=== PATIENT | male | born 1975 | race American Indian/Alaskan Native ===

== ENCOUNTER 2017-04-07 18:03 | Emergency (ER) | payer SELFPAY ==
[2017-04-07 18:15] VITALS: BP 117/66; PULSE 79; TEMP 96.1; BMI 21.7
--- NOTE | 2017-04-07 19:01 | PDOC ---
History of Present Illness - General Chief Complaint: Respiratory Stated Complaint: FLU SYMPTOMS Time Seen by Provider: 04/07/17 18:59 History Source: Patient Exam Limitations: No Limitations - History of Present Illness Initial Comments: 04/07/17 19:20 Patient came for evaluation of flulike symptoms. has had high fever since Sunday, body aches, sweats and chills, moist nonproductive cough, mild sore throat pain. has been using [id number] medications with some symptomatic relief. Timing/Duration: reports: just prior to arrival, getting worse Severity: reports: mild, moderate Associated Symptoms: reports: cough, dizziness, fever/chills, headache, nasal congestion, nasal drainage, sore throat. denies: wheezing Past History - Travel Traveled outside of the country in the last 30 days: No Close contact w/someone who was outside of country & ill: No - Past Medical History Allergies/Adverse Reactions: Allergies Allergy/AdvReac Type Severity Reaction Status Date / Time No Known Allergies Allergy Verified 04/07/17 18:15 Home Medications: Ambulatory Orders NK [No Known Home Medication] 04/07/17 COPD: No - Suicide/Smoking/Psychosocial Hx Smoking History: Never smoked Review of Systems - Review of Systems Able to Perform ROS?: Yes Is the patient limited Green[place]ic proficient: Yes Constitutional: Yes: Symptoms Reported, See HPI, Chills, Fever, Loss of Appetite , Malaise HEENTM: Yes: Symptoms Reported, Nose Congestion, Throat Pain, Difficulty Swallowing Respiratory: Yes: Symptoms reported, See HPI, Cough. No: Wheezing ABD/GI: Yes: See HPI. No: Symptoms Reported Musculoskeletal: Yes: See HPI, Muscle Pain. No: Symptoms Reported Neurological: Yes: Symptoms reported, See HPI, Headache All Other Systems: Reviewed and Negative *Physical Exam - Vital Signs Last Vital Signs Temp Pulse Resp BP Pulse Ox 96.1 F L 79 18 117/66 99 04/07/17 18:12 04/07/17 18:12 04/07/17 18:12 04/07/17 18:12 04/07/17 18:12 - Physical Exam General Appearance: Yes: Nourished, Appropriately Dressed, Apparent Distress, Mild Distress HEENT: positive: TMs Normal (congested), Pharyngeal Erythema, Tonsillar Erythema , Nasal Congestion, Rhinorrhea, Sinus Tenderness Neck: positive: Supple, Lymphadenopathy (R), Lymphadenopathy (L) Respiratory/Chest: positive: Lungs Clear, Normal Breath Sounds. negative: Rhonchi, Wheezing Musculoskeletal: positive: Normal Inspection Extremity: positive: Normal Capillary Refill, Normal Inspection, Normal Range of Motion. 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, Fully Oriented, Alert, Normal Mood/ Affect, Normal Response, Motor Strength /5 Progress Note - Progress Note Progress Note: Influenzal type illness however outside window for treatment with Tamiflu therefore will continue conservative measures *DC/Admit/Observation/Transfer Diagnosis at time of Disposition: Influenzal acute upper respiratory infection - Discharge Dispostion Disposition: HOME Condition at time of disposition: Stable Admit: No - Referrals - Patient Instructions Additional Instructions: Rest, drink lots of fluids: Teas, water, soups, Pedialyte Saltwater gargles Steamy showers/seem to face break up mucus Old-fashioned treatments help! Avoid contact with others until fevers and cough resolved as this is very contagious Lots of handwashing and good hygiene Continue [id number] medications for symptomatic relief Tylenol or Motrin for fever and pain Followup with private physician in one to 2 days as needed or if worsening Return to emergency department for worsened symptoms, fevers, dehydration Influenza takes between 5 and 7 days for resolution To not participate in any activity, work, or school until fevers and cough are gone for at least one day - Post Discharge Activity Forms/Work/School Notes: Back to Work
== END 2017-04-07 19:26 | disposition home or self-care (01) ==
LOC: JERFT 18:03
DX: J11.1 Influenza due to unidentified influenza virus with other respiratory manifestations (principal)
CPT/HCPCS: 99281-25

== ENCOUNTER 2022-05-29 11:12 | Emergency (ER) | payer OTHER ==
[2022-05-29 11:25] VITALS: BP 115/74; PULSE 93; RESP 17; TEMP 99.7; BMI 21.0
[2022-05-29] MEDS ORDERED: ACETAMINOPHEN 500 MG TABLET (FP) PO ONE (11:35)
[2022-05-29] MEDS ORDERED: IBUPROFEN 600 MG TABLET (FP) PO ONE ×2 (12:02→13:18)
[2022-05-29] MEDS ORDERED: ONDANSETRON *ODT* 4 MG TABLET SL ONE (12:02)
[2022-05-29] MEDS ORDERED: ACETAMINOPHEN 500 MG TABLET (FP) ONE (13:18)
[2022-05-29] MEDS ORDERED: ONDANSETRON *ODT* 4 MG TABLET ONE (13:18)
== END 2022-05-29 13:40 | disposition home or self-care (01) ==
LOC: JERFT 11:12 → JER 11:12 → JERFT 13:40
DX: J10.1 Influenza due to other identified influenza virus with other respiratory manifestations (principal); R05.1 Acute cough; R09.81 Nasal congestion; Z20.822 Contact with and (suspected) exposure to COVID-19
CPT/HCPCS: 0241U-QW; 71046-TC-FY; 87651; 99284-25; Q0162